=== PATIENT | male | born 1940 | race Caucasian/White ===

== ENCOUNTER 2020-09-27 16:12 | Inpatient (IN) | payer MEDICARE ==
[~2020-09-27 16:12] MED LIST: Iopamidol-370 76% 500 ML 1 ML ONE
[2020-09-27 19:13] LABS: Troponin I 0.041 ng/mL (< 0.028)
--- NOTE | 2020-09-27 19:48 | CT ---
EXAM: CT ANGIOGRAM CHEST WITH 3D RENDERIN09/27/20 HISTORY: Dyspnea. Left sided pneumonia. FINDINGS: There is extensive bilateral interstitial, alveolar, and ground glass opacity changes throughout both lungs evidence for extensive bilateral COVID pneumonia. There are fairly numerous up to borderline s ized lymph nodes but without overt adenopathy by size criteria. Three vessel coronary artery calcific disease. No significant pleural effusion or pericardial effusion. Small hiatal hernia. Motion artifa ct lowers the sensitivity of this study particularly in the more peripheral pulmonary arteries partic ularly in the lower lobes. There is no central pulmonary artery thrombosis. Small 1.5 cm incompletel y characterized low attenuation focus in the central left lobe of the liver possibly some focal fatty change. IMPRESSION: No convincing CT evidence for acute pulmonary embolism. Evidence for extensive bilateral COVID pneumonia. Small hiatal hernia. Other findings as above. POS: RRE
[2020-09-27] MEDS ORDERED: Acetaminophen 325 MG TAB PO PRN (20:11)
[2020-09-27] MEDS ORDERED: Acetaminophen 650 MG Suppository PR PRN (20:11)
[2020-09-27] MEDS ORDERED: Albuterol Sulfate 2.5 mg/3 ml Neb NEB PRN (20:34)
[2020-09-27] MEDS ORDERED: Pharmacy to Dose REMDESIVIR IVPB PRN (20:37)
[2020-09-27] MEDS ORDERED: Dexamethasone 10 MG in Sodium Chloride 0.9% 50 ML IVPB SCH (20:45)
--- NOTE | 2020-09-27 21:19 | PDOC.HHP ---
Hospitalist HPI History of Present Illness: ADMISSION DATE: 09/27/2020 TIME OF ASSESSMENT: 190 PRIMARY CARE PHYSICIAN: Dr. Mchugh CHIEF COMPLAINT: Weakness and falls HPI: This is an 80-year-old gentleman who presents to the emergency department today due to concerns over generalized weakness which she has been experiencing for the last 4 to 5 days. The patient states that he is had frequent falls at home without any loss of consciousness and states that his legs suddenly give out due to significant weakness. He has sustained injuries to his head with his falls but denies any lasting pain or discomfort associated with falling. Denies any extremity numbness and has not had any vision or speech disturbances. Denies any dizziness/spinning sensation. Denies experiencing any lightheadedness. He states he has had a low appetite with subsequent decreased p.o. intake. Has had an occasional cough but denies any fevers, chills or sweats. His cough has been nonproductive and he denies any hemoptysis, shor tness of breath or chest pain. No nausea vomiting or abdominal pain. No changes with his stools and denies having any urinary symptoms. All other review of systems are negative. Since arriving to the emergency department the patient states that his energy level has increased significantly and he feels better. ED COURSE: He was initially seen at [facility] and per ED notes he was noted to have a low-grade temperature of 99.5 with sats of 88% on room air which improved to 98% on 2 L of oxygen by nasal cannula. A chest x-ray was done demonstrating bilateral pulmonary infiltrates, denser on the left upper lobe than the right. Given the falls he had a CT of the head done that showed chronic ischemic changes with no acute intracranial findings. Labs notable for white cell count of 9.3, hemoglobin 13.6, hematocrit 41%, platelets 157, neutrophils 79.1%. BUN 24, creatinine 1.51, GFR 45, glucose 242, lactic acid 2.1. Total bilirubin 1.6, AST 98, ALT 71, alk phos 82, CK-MB 2.2, BNP 84.9, troponin 0 0.041. Repeat troponin was 0.041. EKG done in the ER showed a normal sinus rhythm with no ST changes or T wave abnormalities. He received IV antibiotics with Rocephin 1 g and azithromycin 500 mg IV. He was given Decadron 6 mg IV as well as aspirin 324 mg. He received 500 mL of normal saline. A rapid Covid test was done and came back positive. He was transferred to the ER here and has been requiring 4 L of O2 to maintain sats of 97%. Blood pressure has been stable and he has been afebrile. CT angiogram of the chest was done which showed no convincing evidence for pulmonary embolism. He was noted to have extensive bilateral Covid pneumonia as well as a small hiatal hernia. PAST MEDICAL HISTORY: 1. GERD 2. Hyperlipidemia 3. Hypertension 4. History of CVA PAST SURGICAL HISTORY: None SOCIAL HISTORY: He lives with his . He is fully independent at baseline. Does not require any mobility devices. FAMILY HISTORY: Noncontributory ALLERGIES: No known drug allergies CURRENT MEDICATIONS: 1. Simvastatin 20 mg p.o. daily 2. Amlodipine 10 mg p.o. daily 3. Lisinopril 10 mg p.o. daily 4. Omeprazole 20 mg p.o. daily Hospitalist Exam General Appearance: NAD, awake alert General - other findings: VS: Temp 98.3, HR 59, BP 112/58, RR 18, O2 sat 100% on 4 L O2 by NC Eye: PERRL, anicteric sclera ENT: normocephalic atraumatic, no oropharyngeal lesions, dry oral mucosa Neck: supple, no lymphadenopathy Heart: RRR, no murmur, no gallops, no rubs, normal peripheral pulses Respiratory: CTAB, no wheezes, no rales, normal chest expansion Gastrointestinal: soft, non-tender, non-distended, normal bowel sounds, no guarding, no rigidity Extremities: no edema Skin: no lesions, no rashes, tenting Neurological: cranial nerve grossly intact, normal sensation to touch, no weakness, no focal deficits, no new deficit Neurological - other findings: power 5/5 in all limbs, facial sensation and movements normal Musculoskeletal: normal tone, normal strength, no muscle wasting Psychiatric: normal affect, normal behavior, A&O x 3 Hospitalist Results Lab results: Laboratory Last Values Troponin I 0.041 ng/mL (< 0.028) H 09/27/20 18:33 CT scan - chest Status: report reviewed by me CT scan - head Status: report reviewed by me Hospitalist H&P A/P (1) Pneumonia due to COVID-19 virus Code(s): U07.1 - COVID-19; J12.82 - PNEUMONIA DUE TO CORONAVIRUS DISEASE 2019 Status: Acute (2) Generalized weakness Code(s): R53.1 - WEAKNESS Status: Acute (3) Multiple falls Code(s): R29.6 - REPEATED FALLS Status: Acute (4) ERNESTINE (acute kidney injury) Code(s): N17.9 - ACUTE KIDNEY FAILURE, UNSPECIFIED Status: Acute (5) Hypertension Code(s): I10 - ESSENTIAL (PRIMARY) HYPERTENSION Status: Chronic (6) History of CVA (cerebrovascular accident) Code(s): Z86.73 - PRSNL HX OF TIA (TIA), AND CEREB INFRC W/O RESID DEFICITS Status: Chronic (7) GERD (gastroesophageal reflux disease) Code(s): K21.9 - GASTRO-ESOPHAGEAL REFLUX DISEASE WITHOUT ESOPHAGITIS Status: Chronic (8) Hyperlipidemia Code(s): E78.5 - HYPERLIPIDEMIA, UNSPECIFIED Status: Chronic Plan: Hypoxia secondary to COVID pneumonia Continue to monitor O2 sats Albuterol inhalers and steroids Vitamin C and Zinc ordered Screen for Remdesivir Generalized weakness with falls- multifactorial (COVID pneumonia and dehydration) PT/OT consulted Check orthostatic BPs ERNESTINE Gentle hydration Monitor renal function Avoid nephrotoxic meds History of CVA Chronic and stable No indication he is having an acute CVA/TIA No neuro deficits on exam Hypertension Monitor BP Hold antihypertensives, given soft BP Hyperlipidemia Resume home meds once verified GERD Resume protonix DVT Prophylaxis Heparin CODE STATUS FULL Case discussed with attending who agrees with plan as above.
[2020-09-27 21:44] LABS: CRP (Inflammatory) 17.6 mg/dL (= or < 0.5); Magnesium 2.2 mg/dL (1.6-2.6)
[2020-09-27 21:50] LABS: Troponin I 0.025 ng/mL (< 0.028)
[2020-09-27 21:59] VITALS: BMI 25.3
[2020-09-27] MEDS ORDERED: Dexamethasone 4 mg/ml Vial SLOW IVP SCH (22:30)
[2020-09-27] MEDS: Sodium Chloride 0.9% 1,000 ML IV SCH (22:41)
[2020-09-27] MEDS: Famotidine/PF 20 mg/2ml Vial SLOW IVP SCH (22:42)
[2020-09-28 04:46] LABS: #Lymphocytes 0.8 thou/uL (1.20-3.40); #Monocytes 0.3 thou/uL (0.11-0.59); #Neutrophils 8.8 thou/uL (1.40-6.50); %Basophils 0.2 % (0.0-1.0); %Eosinophils 0.1 % (0.0-10.0); %Lymphocytes 8.1 % (21.0-51.0); %Monocytes 3.3 % (0.0-10.0); %Neutrophils 88.3 % (42.0-75.0); Hemoglobin 12.7 g/dL (14.0-18.0); Mean Corpuscular HGB CONC 33.2 g/dL (32.0-36.0); Mean Corpuscular Hemoglobin 30.8 pg (27.0-31.0); Mean Corpuscular Volume 92.7 fL (78.0-98.0); Mean Platelet Volume 9.6 fL (7.4-10.4); Platelet Count 182 thou/uL (130-400); RBC Distribution Width 11.9 % (11.5-14.5); Red Blood Cell (RBC) Count 4.11 mill/uL (4.70-6.10); White Blood Cell (WBC) Count 9.9 thou/uL (4.8-10.8)
[2020-09-28 05:20] LABS: ALT (SGPT) 61 U/L (8-55); AST (SGOT) 79 U/L (5-34); Albumin 2.8 g/dL (3.4-4.8); Alkaline Phosphatase 81 U/L (40-110); Anion Gap 14 mmol/L (10-20); BUN (Urea Nitrogen) 22 mg/dL (8.4-25.7); Calc. Creatinine Clearance 57 mL/min (70-130); Calcium 8.3 mg/dL (7.8-10.44); Carbon Dioxide 23 mmol/L (23-31); Chloride 107 mmol/L (98-107); Globulin 3.8 g/dL (2.4-3.5); Glucose 210 mg/dL (83-110); Protein, Total 6.6 g/dL (5.8-8.1); Sodium 139 mmol/L (136-145)
[2020-09-28] MEDS ORDERED: REMDESIVIR (EUA) 200 MG in Sodium Chloride 0.9% 250 ML 210 ML IV SCH (08:15)
[2020-09-28] MEDS: Famotidine/PF 20 mg/2ml Vial SLOW IVP SCH ×2 (09:33→22:10)
[2020-09-28] MEDS: Zinc Sulfate 220 MG CAP PO SCH (09:33)
[2020-09-28] MEDS: Dexamethasone 4 mg/ml Vial SLOW IVP SCH (09:33)
[2020-09-28] MEDS: Ascorbic Acid 500 mg Chewable Tablet PO SCH (09:33)
[2020-09-28] MEDS: Heparin 5,000 UNITS/ML VIAL SC SCH ×3 (09:34→22:11)
--- NOTE | 2020-09-28 10:28 | PDOC.HOSPP ---
- Subjective Encounter Date: 09/28/20 Encounter Time: 10:27 Subjective: Patient lying in bed, awake. Patient pleasant to talk to, alert and oriented. Denies any events occurred last night. - Objective Vital Signs & Weight: Vital Signs (12 hours) Temp Pulse Resp BP Pulse Ox 09/28/20 04:30 97.6 F 62 18 127/60 94 L Weight Weight 166 lb 12.8 oz I&O: 09/27/20 09/28/20 09/29/20 06:59 06:59 06:59 Intake Total 510 Output Total 1 Balance 509 Result Diagrams: 09/28/20 04:12 09/28/20 04:12 Hospitalist ROS - Review of Systems Constitutional: denies: fever, chills, sweats, weakness, malaise Eyes: denies: pain, vision change, conjunctivae inflammation, eyelid inflammation, redness ENT: denies: ear pain, ear discharge, nose pain, nose discharge, nose congestion, mouth pain, mouth swelling, throat pain, throat swelling Respiratory: denies: cough, dry, shortness of breath, hemoptysis, SOB with excertion, pleuritic pain, sputum, wheezing Cardiovascular: denies: chest pain, palpitations, orthopnea, paroxysmal noc. dyspnea, edema, light headedness Gastrointestinal: denies: nausea, vomiting, abdominal pain, diarrhea, constipation, melena, hematochezia Genitourinary: denies: dysuria, frequency, incontinence, hematuria, retention Musculoskeletal: denies: neck pain, shoulder pain, arm pain, back pain, hand pain, leg pain, foot pain Skin: denies: rash, lesions, alejandro, bruising, other Neurological: denies: weakness, numbness, incoordination, change in speech, confusion, seizures All other systems reviewed; all pertinent +/- noted in HPI/Subj - Medication Medications: Active Medications Generic Name Dose Route Start Last Admin Trade Name Freq PRN Reason Stop Dose Admin Ascorbic Acid 1,000 mg 09/28/20 09:00 09/28/20 09:33 Ascorbic Acid 500 Mg Chewable Tablet PO 1,000 mg DAILY NITISH Administration Dexamethasone 6 mg 09/28/20 09:00 09/28/20 09:33 Dexamethasone 4 Mg/Ml Vial SLOW IVP 6 mg DAILY NITISH Administration Famotidine 20 mg 09/27/20 21:00 09/28/20 09:33 Famotidine/Pf 20 Mg/2ml Vial SLOW IVP 20 mg Q12HR NITISH Administration Heparin Sodium (Porcine) 5,000 units 09/28/20 09:00 09/28/20 09:34 Heparin 5,000 Units/Ml Vial SC 5,000 units TID NITISH Administration Sodium Chloride 1,000 mls @ 45 mls/hr 09/27/20 22:30 09/27/20 22:41 Normal Saline 0.9% IV 1,000 mls .[id number] NITISH Administration Sodium Chloride 10 ml 09/27/20 20:11 09/28/20 09:34 Flush - Normal Saline 10 Ml Syringe IVF 10 ml Q12HR PRN Administration Saline Flush Zinc Sulfate 220 mg 09/28/20 09:00 09/28/20 09:33 Zinc Sulfate 220 Mg Cap PO 220 mg DAILY NITISH Administration Hospitalist Exam Vitals: Vital Signs (12 hours) Temp Pulse Resp BP Pulse Ox 09/28/20 04:30 97.6 F 62 18 127/60 94 L Weight Weight 166 lb 12.8 oz General Appearance: NAD, awake alert Eye: PERRL, anicteric sclera ENT: normocephalic atraumatic, no oropharyngeal lesions, moist mucosa Neck: supple, symmetric, no JVD, no thyromegaly, no lymphadenopathy, no carotid bruit Heart: RRR, no murmur, no gallops, no rubs, normal peripheral pulses Respiratory: CTAB, no wheezes, no rales, no ronchi, normal chest expansion, no tachypnea, normal percussion Gastrointestinal: soft, non-tender, non-distended, normal bowel sounds, no palpable masses, no hepatomegaly, no splenomegaly, no bruit Extremities: no cyanosis, no clubbing, no edema Skin: normal turgor, no lesions, no rashes Neurological: cranial nerve grossly intact, normal sensation to touch, no weakness, no focal deficits, no new deficit Musculoskeletal: normal tone, normal strength, no muscle wasting Psychiatric: normal affect, normal behavior, A&O x 3 Hosp A/P (1) Pneumonia due to COVID-19 virus Code(s): U07.1 - COVID-19; J12.82 - PNEUMONIA DUE TO CORONAVIRUS DISEASE 2019 Status: Acute (2) Generalized weakness Code(s): R53.1 - WEAKNESS Status: Acute (3) ERNESTINE (acute kidney injury) Code(s): N17.9 - ACUTE KIDNEY FAILURE, UNSPECIFIED Status: Acute (4) GERD (gastroesophageal reflux disease) Code(s): K21.9 - GASTRO-ESOPHAGEAL REFLUX DISEASE WITHOUT ESOPHAGITIS Status: Chronic (5) Hyperlipidemia Code(s): E78.5 - HYPERLIPIDEMIA, UNSPECIFIED Status: Chronic (6) Hypertension Code(s): I10 - ESSENTIAL (PRIMARY) HYPERTENSION Status: Chronic - Plan DVT proph w/heparin 80 y/o male admitted for hypoxia s/p COVID pneumonia: PLAN: Hypoxia secondary to COVID pneumonia Continue to monitor O2 sats Albuterol inhalers and steroids Vitamin C and Zinc ordered Remdesivir started 09/28/20 Generalized weakness with falls- multifactorial (COVID pneumonia and dehydration) PT/OT consulted Check orthostatic BPs ERNESTINE Gentle hydration Monitor renal function Avoid nephrotoxic meds History of CVA Chronic and stable No indication he is having an acute CVA/TIA No neuro deficits on exam Hypertension Monitor BP Hold antihypertensives, given soft BP Hyperlipidemia Resume home meds once verified GERD Resume protonix DVT Prophylaxis Heparin CODE STATUS FULL
[2020-09-28] MEDS: VANCOMYCIN 1.25 GM/250 ML BAG 1.25 GM in Premix Bag 1 BAG IVPB SCH (18:35)
[2020-09-29] MEDS: Sodium Chloride 0.9% 1,000 ML IV SCH ×2 (04:04→18:52)
[2020-09-29] MEDS: Famotidine/PF 20 mg/2ml Vial SLOW IVP SCH ×2 (09:12→20:05)
[2020-09-29] MEDS: Zinc Sulfate 220 MG CAP PO SCH (09:12)
[2020-09-29] MEDS: Ascorbic Acid 500 mg Chewable Tablet PO SCH (09:12)
[2020-09-29] MEDS: Heparin 5,000 UNITS/ML VIAL SC SCH ×3 (09:13→20:05)
[2020-09-29] MEDS: Dexamethasone 4 mg/ml Vial SLOW IVP SCH (09:15)
--- NOTE | 2020-09-29 10:02 | PDOC.HOSPP ---
- Subjective Encounter Date: 09/29/20 Encounter Time: 08:25 Subjective: 80 y/o male sitting up in bed and he is alert and oriented when questioned. Patient is on room air, denies any shortness of breath. Patient has sporadic dry cough. - Objective Vital Signs & Weight: Vital Signs (12 hours) Temp Pulse Resp BP BP Pulse Ox 09/29/20 07:48 97.4 F L 55 L 16 107/57 L 95 09/29/20 04:12 97.5 F L 59 L 22 H 131/59 L 93 L 09/28/20 22:20 97.6 F 58 L 20 119/60 97 Weight Weight 166 lb 12.8 oz I&O: 09/28/20 09/29/20 09/30/20 06:59 06:59 06:59 Intake Total 510 230 Output Total 1 Balance 509 230 Result Diagrams: 09/28/20 04:12 09/28/20 04:12 Hospitalist ROS - Review of Systems Constitutional: denies: fever, chills, sweats, weakness, malaise Eyes: denies: pain, vision change, conjunctivae inflammation, eyelid inflammation, redness ENT: denies: ear pain, ear discharge, nose pain, nose discharge, nose congestion, mouth pain, mouth swelling, throat pain, throat swelling Respiratory: reports: cough. denies: dry, shortness of breath, hemoptysis, SOB with excertion, pleuritic pain, sputum, wheezing Cardiovascular: denies: chest pain, palpitations, orthopnea, paroxysmal noc. dyspnea, edema, light headedness Gastrointestinal: denies: nausea, vomiting, abdominal pain, diarrhea, constipation, melena, hematochezia Genitourinary: denies: dysuria, frequency, incontinence, hematuria, retention Musculoskeletal: denies: neck pain, shoulder pain, arm pain, back pain, hand pain, leg pain, foot pain, other Skin: denies: rash, lesions, alejandro, bruising Neurological: denies: weakness, numbness, incoordination, change in speech, confusion, seizures All other systems reviewed; all pertinent +/- noted in HPI/Subj - Medication Medications: Active Medications Generic Name Dose Route Start Last Admin Trade Name Freq PRN Reason Stop Dose Admin Ascorbic Acid 1,000 mg 09/28/20 09:00 09/29/20 09:12 Ascorbic Acid 500 Mg Chewable Tablet PO 1,000 mg DAILY NITISH Administration Dexamethasone 6 mg 09/28/20 09:00 09/29/20 09:15 Dexamethasone 4 Mg/Ml Vial SLOW IVP 6 mg DAILY NITISH Administration Famotidine 20 mg 09/27/20 21:00 09/29/20 09:12 Famotidine/Pf 20 Mg/2ml Vial SLOW IVP 20 mg Q12HR NITISH Administration Heparin Sodium (Porcine) 5,000 units 09/28/20 09:00 09/29/20 09:13 Heparin 5,000 Units/Ml Vial SC 5,000 units TID NITISH Administration Sodium Chloride 1,000 mls @ 45 mls/hr 09/27/20 22:30 09/29/20 04:04 Normal Saline 0.9% IV 1,000 mls .[id number] NITISH Administration Vancomycin HCl 1.25 gm/ Device 250 mls @ 166.667 mls/hr 09/28/20 18:00 09/28/20 18:35 IVPB 250 mls 1800 NITISH Administration Sodium Chloride 10 ml 09/27/20 20:11 09/29/20 09:11 Flush - Normal Saline 10 Ml Syringe IVF 10 ml Q12HR PRN Administration Saline Flush Zinc Sulfate 220 mg 09/28/20 09:00 09/29/20 09:12 Zinc Sulfate 220 Mg Cap PO 220 mg DAILY NITISH Administration Hospitalist Exam Vitals: Vital Signs (12 hours) Temp Pulse Resp BP BP Pulse Ox 09/29/20 07:48 97.4 F L 55 L 16 107/57 L 95 09/29/20 04:12 97.5 F L 59 L 22 H 131/59 L 93 L 09/28/20 22:20 97.6 F 58 L 20 119/60 97 Weight Weight 166 lb 12.8 oz General Appearance: NAD, awake alert Eye: PERRL, anicteric sclera ENT: normocephalic atraumatic, no oropharyngeal lesions, moist mucosa Neck: supple, symmetric, no JVD, no thyromegaly, no lymphadenopathy, no carotid bruit Heart: RRR, no murmur, no gallops, no rubs, normal peripheral pulses Respiratory: CTAB, no wheezes, no rales, no ronchi, normal chest expansion, no tachypnea, normal percussion Gastrointestinal: soft, non-tender, non-distended, normal bowel sounds, no palpable masses, no hepatomegaly, no splenomegaly, no bruit Extremities: no cyanosis, no clubbing, no edema Skin: normal turgor, no lesions, no rashes Neurological: cranial nerve grossly intact, normal sensation to touch, no weakness, no focal deficits, no new deficit Musculoskeletal: normal tone, normal strength, no muscle wasting Psychiatric: normal affect, normal behavior, A&O x 3 Hosp A/P (1) Pneumonia due to COVID-19 virus Code(s): U07.1 - COVID-19; J12.82 - PNEUMONIA DUE TO CORONAVIRUS DISEASE 2018 Status: Acute (2) Generalized weakness Code(s): R53.1 - WEAKNESS Status: Acute (3) ERNESTINE (acute kidney injury) Code(s): N17.9 - ACUTE KIDNEY FAILURE, UNSPECIFIED Status: Acute (4) GERD (gastroesophageal reflux disease) Code(s): K21.9 - GASTRO-ESOPHAGEAL REFLUX DISEASE WITHOUT ESOPHAGITIS Status: Chronic (5) Hyperlipidemia Code(s): E78.5 - HYPERLIPIDEMIA, UNSPECIFIED Status: Chronic (6) Hypertension Code(s): I10 - ESSENTIAL (PRIMARY) HYPERTENSION Status: Chronic - Plan 80 y/o male admitted for hypoxia s/p COVID pneumonia: PLAN: Hypoxia secondary to COVID pneumonia Continue to monitor O2 sats Albuterol inhalers and steroids Vitamin C and Zinc ordered Remdesivir started 09/28/20 Generalized weakness with falls- multifactorial (COVID pneumonia and dehydration) PT/OT consulted Check orthostatic BPs - patient orthostatic negative ERNESTINE Gentle hydration, patient is tolerating intake well. Monitor renal function Avoid nephrotoxic meds History of CVA Chronic and stable No indication he is having an acute CVA/TIA No neuro deficits on exam Hypertension Monitor BP Hold antihypertensives, given soft BP Hyperlipidemia Resume home meds once verified GERD Resume protonix DVT Prophylaxis Heparin CODE STATUS FULL
[2020-09-29] MEDS: REMDESIVIR (EUA) 100 MG in Sodium Chloride 0.9% 250 ML 230 ML IV SCH (10:07)
[2020-09-29] MEDS: VANCOMYCIN 1.25 GM/250 ML BAG 1.25 GM in Premix Bag 1 BAG IVPB SCH (18:43)
[2020-09-29] MEDS: Atorvastatin Calcium 10 MG TAB PO SCH (20:05)
--- NOTE | 2020-09-30 08:11 | PDOC.BPN ---
- Brief Progress Note Encounter Date: 09/29/20 Encounter Time: 18:30 Discussed patient's discharge with Dr. Cassidy. Patient was ambulated by nursing this evening and nurse reported that he was not terrible unsteady, he ambulates with a walker at home. is unable to get him tonight for DC, so planning on discharging tomorrow, 09/30/20.
[2020-09-30] MEDS: Amlodipine 10 MG TAB PO SCH (08:51)
[2020-09-30] MEDS: Ascorbic Acid 500 mg Chewable Tablet PO SCH (08:51)
[2020-09-30] MEDS: Famotidine/PF 20 mg/2ml Vial SLOW IVP SCH ×2 (08:51→20:57)
[2020-09-30] MEDS: Dexamethasone 4 mg/ml Vial SLOW IVP SCH (08:51)
[2020-09-30] MEDS: Zinc Sulfate 220 MG CAP PO SCH (08:51)
[2020-09-30] MEDS: Heparin 5,000 UNITS/ML VIAL SC SCH ×3 (08:51→20:58)
[2020-09-30] MEDS: REMDESIVIR (EUA) 100 MG in Sodium Chloride 0.9% 250 ML 230 ML IV SCH (09:30)
--- NOTE | 2020-09-30 10:22 | PQF ---
CLINICAL DOCUMENTATION CLARIFICATION FORM: Dear Ayanna Smith PA-C Date: 09/30/20 Please exercise your independent, professional judgment in responding to the clarification form. Clinical indicators are provided on the bottom of this form for your review. Please check appropriate box(es): [ x ] Acute Respiratory Failure: [ x] with Hypoxia [ ] with Hypercapnia [ x] Acute Respiratory Failure due to: (etiology) __COVID-19 Pneumonia [ ] Hypoxia [ ] Other diagnosis [ ] Unable to determine In addition, please specify: Present on Admission (POA): [x ] Yes [ ] No [ ] Unable to determine For continuity of documentation, please document condition throughout progress notes and discharge summary. Thank You. To be completed by CDI/Coding staff for physician review: CLINICAL INDICATORS - SIGNS / SYMPTOMS / LABS / RESULTS AND LOCATION IN ER MD documentation 09/27: P.E. - VS notable for 02 sat in mid 90s on 4L of 02; patient reportedly had desats by EMS to the 80s on RA H&P 09/27 ([facility]): ED COURSE: per ED notes sats of 88% on RA which improved to 98% on 2L 02 NC; He was transferred to the ER here & has been requiring 4L of 02 to maintain sats of 97%. PLAN: Hypoxia 2/2 to COVID pneumonia RISK FACTORS / RESULTS AND LOCATION IN MR COVID Pneumonia, bilateral (H&P, 09/27) Hypoxia (H&P, 09/27) TREATMENTS / RESULTS AND LOCATION IN MR 02 4L (H&P, 09/27) Albuterol inhalers (H&P, 09/27) Steroids (H&P, 09/27) Acute Respiratory Failure: ABG pH < 7.35 or > 7.45; Decreased oxygen saturation (<90% room air or < 95% on oxygen); PCO2 > 50 mm Hg; PO2 < 60 mm Hg; Labored or rapid respirations ARDS: Dx Criteria [[place] ARDS]: Respiratory symptoms within one week of a known clinical insult (e.g. shock, infection, surgery, trauma) Bilateral opacities in CXR/Chest CT not due to CHF or fluid Thank you! CDS Signature: Kindra Lewis RN, BSN Phone #: [phone] Date: 09/30/20 This is a permanent part of the Medical Record [facility]
[2020-09-30] MEDS ORDERED: Cepastat Lozenges 1 LOZ PO PRN (11:05)
--- NOTE | 2020-09-30 11:22 | PDOC.DS.DS ---
Provider Date of Admission: 09/27/20 18:26 Date of Discharge: 10/02/20 Admitting Provider: Bladimir Eid MD Primary Care Physician: Uriel Mchugh MD Course Hospital Course: BRIEF HOSPITAL COURSE Mr. Escobedo is an 80-year-old male with a past medical history of hypertension, hyperlipidemia, GERD, CVA with no residual deficits who reported to the emergency room on 09/27/2020 for generalized weakness. Patient was found to have COVID-19 pneumonia and required 2 L of oxygen via nasal cannula to maintain O2 saturation. Patient did endorse a history of falls and so a head CT was done which showed no acute problems but did show chronic ischemic changes. Patient's labs were notable for a white count of 9.3, H/H 13.6/41, lactic acid 2.1, mildly elevated LFTs with AST/ALT 98/71, alk phos 82. BNP was 84.9 and troponin was 0.041, 0.041, 0.025. Patient did not have any chest pain, but did endorse mild shortness of breath. Patient was treated with ceftriaxone, azithromycin as well as Decadron in the emergency room. CTA showed bilateral patchy opacities as well as a left upper lobe infiltrate. A CT angiogram of the chest was done which showed no evidence for pulmonary embolism but did show a small hiatal hernia and changes consistent with COVID-19 pneumonia. Patient was treated with remdesivir, steroids and antibiotics. Patient's respiratory status and functional status greatly improved during admission. By her oxygen for the past 2 days, and has been ambulating well. Patient passed in walking trial and his O2 saturation did not drop. Patient walked well with nursing staff, and reports he uses a walker at home. Patient feels that he is at his baseline functional status. On day of discharge a repeat walking trial was done and O2 saturation dropped to 88%, so home oxygen was ordered. Given patient's COVID-19 and chest x-ray findings, will will continue course of steroids to complete 10 days as well as sent home with prescription for Cefpodoxime and azithromycin to complete a 5-day course. Patient was instructed to follow-up with his primary care provider this week as well as return to the emergency room should he develop any new worsening shortness of breath if his symptoms do not improve or if he develops any new or concerning symptoms. Patient was seen and evaluated by attending physician, Dr. Cassidy day of discharge. She is in agreement with assessment and plan for discharge home. Pertinent Studies: EXAM: CT ANGIOGRAM CHEST WITH 3D RENDERIN09/27/20 HISTORY: Dyspnea. Left sided pneumonia. FINDINGS: There is extensive bilateral interstitial, alveolar, and ground glass opacity changes throughout both lungs evidence for extensive bilateral COVID pneumonia. There are fairly numerous up to borderline sized lymph nodes but without overt adenopathy by size criteria. Three vessel coronary artery calcific disease. No significant pleural effusion or pericardial effusion. Small hiatal hernia. Motion artifact lowers the sensitivity of this study particularly in the more peripheral pulmonary arteries particularly in the lower lobes. There is no central pulmonary artery thrombosis. Small 1.5 cm incompletely characterized low attenuation focus in the central left lobe of the liver possibly some focal fatty change. IMPRESSION: No convincing CT evidence for acute pulmonary embolism. Evidence for extensive bilateral COVID pneumonia. Small hiatal hernia. Other findings as above. Dictated By: GUANAKO DAVIS Signed By: GUANAKO DAVIS Electronically signed: 09/27/2020 7:51:18 PM PORTABLE CHEST: 09/27/20 An AP portable film at 1410 was submitted. There is a dense consolidation in the left lung, predominantly left upper lobe. One could argue that parts of it are somewhat wedge shaped which can sometimes be a sign of pulmonary embolism, but it could also be a pneumonia and nothing more. There also appears to be a little bit of peripheral infiltration in the right upper lobe. There are no effusions. There is no vascular congestion or edema. The cardiac size is normal for age. The aorta shows calcification. An incidental finding was a calcified granuloma in the right upper lobe. IMPRESSION: Bilateral pulmonary infiltrates, denser in the left upper lobe than the right. See comments above. Findings discussed with Dr. Rangel at 1417 on 09/27/20. Dictated By: James Rahman Signed By: James Rahman Electronically signed: 09/27/2020 11:08:18 PM Resuscitation Status: 09/27/20 20:11 Resuscitation Status Routine Co-Sign Provider: Resuscitation Status: FULL: Full Resuscitation Lab Results: 09/28/20 04:12 09/28/20 04:12 Microbiology - Entire Visit 09/29/20 19:13 Venous blood - Left Arm Blood Culture - Preliminary Specimen has been received and culture in progress. No Growth to date. 09/29/20 19:13 Venous blood - Right Arm Blood Culture - Preliminary Specimen has been received and culture in progress. No Growth to date. Vitals: Vital Signs (12 hours) Temp Pulse Resp BP Pulse Ox 09/30/20 08:50 97.7 F 56 L 18 116/55 L 95 09/30/20 04:53 97.5 F L 58 L 17 136/60 95 Weight Weight 166 lb 12.8 oz Physical Exam: The patient was seen and examined on the day of discharge. NAD, AOx3 Normocephalic, atraumatic Neck supple, no JVD, no lymphadenopathy RRR, no murmurs, rubs, or gallops Lungs CTAB, no wheezes, no dyspnea or tachypnea Abdomen soft, non-tender with normoactive bowel sounds Skin warm with no rashes, normal turgor Extremities with no edema and intact peripheral pulses Normal tone and muscle strength No focal deficits, no weakness Problem Plan of Treatment: Hypoxia secondary to COVID pneumonia Initially on 2L, now stable on RA. Initially passed amublation trial, but repeat with mild drop. Meets criteria for home O2, given return instructions Will continue on outpatient dexamethasone for a total of 10 days. Will continue with cefpodoxime and azithromycin for 5 days given CXR findings. Return precautions given. Generalized weakness with falls- multifactorial (COVID pneumonia and dehydration) PT/OT consulted who recommended rehab, however patient uses a walker at home at baseline which he did not use on assessment. Patient trialed with walker with nursing staff and felt to be at his baseline ambulatory status. Weakness has greatly improved. Encouraged patient to continue with walker at all times at home to avoid falls and to follow up with PCP within the next week. ERNESTINE Gentle hydration, patient is tolerating intake well. Resolved History of CVA Chronic and stable No indication he is having an acute CVA/TIA No neuro deficits on exam. Hypertension Continue home meds Hyperlipidemia Continue home meds GERD Resume protonix Case discussed with attending physician Dr. Cassidy who also examined and assessed patient on day of discharge. She is in agreement with assessment and plan as above. Plan Prescriptions: Cefpodoxime Proxetil [Vantin] 200 mg PO Q12HR 5 Days #10 tablet Azithromycin 250 mg PO QAM 5 Days #5 tablet Dexamethasone 6 mg PO DAILY 6 Days #6 tablet Home Medications: Medication Instructions Recorded Confirmed Type Amlodipine [Norvasc] 10 mg PO DAILY 09/28/20 09/28/20 History Simvastatin 20 mg PO DAILY 09/28/20 09/28/20 History Azithromycin 250 mg PO QAM 5 Days #5 tablet 09/30/20 Rx Cefpodoxime Proxetil [Vantin] 200 mg PO Q12HR 5 Days #10 tablet 09/30/20 Rx Cepastat Lozenges 1 jey PO Q2H PRN jey 09/30/20 Rx Dexamethasone 6 mg PO DAILY 6 Days #6 tablet 09/30/20 Rx Allergies: No Known Allergies Allergy (Verified 09/27/20 22:30) per pt Discharge Instructions:: You were admitted to the hospital for shortness of breath. You were found to have COVID-19 pneumonia (pneumonia caused by coronavirus). Since you initially required oxygen, you were given a medication called Remdesivir which is an anti- viral medication used to treat COVID-19. You were also given a steroid medication called Dexamethasone. Your breathing improved and since you no longer needed oxygen at rest, you were discharged home. Since your oxygen saturation decreased when you were walking around, we have sent you home with oxygen. Please wear this when walking around or any time you are not sitting. Please keep track of your oxygen saturation. If you feel short of breath or feel that your breathing is worse, or that you need more oxygen return to the emergency room immediately. You will also need to continue to take a steroid medication called Dexamethasone. Since your chest x-ray was concerning for bacterial pneumonia, you were also given antibiotics during your stay. You will need to continue these antibiotics at home for five days. One antibiotic is called cefpodoxime which you will take twice daily and the other is azithromycin which you will take once daily. These three medications have been sent to your pharmacy. Please take one pill every morning for the next 6 days. It is very important that if you develop worsening shortness of breath to immediately return to the emergency room to be evaluated. Please also return if you develop any new or concerning symptoms. Please follow up with an appointment with your primary care provider within the next week. Your prescriptions have been sent to the [facility] in [place]. Referrals: Uriel Mchugh MD [Primary Care Provider] - 7 Days Disposition: HOME Quality CORE MEASURES:: N/A
[2020-09-30] MEDS: Sodium Chloride 0.9% 1,000 ML IV SCH (17:24)
[2020-09-30] MEDS ORDERED: VANCOMYCIN HCL IVPB SCH (18:00)
[2020-09-30] MEDS ORDERED: SODIUM CHLORIDE 0.9% IVPB SCH (18:00)
--- NOTE | 2020-09-30 19:56 | PDOC.EVN ---
Event Note - Event Note Event Note: Saw patient on day of discharge. He was doing well and requested tessalon pearls while in the hospital. States he has plenty of tessalon pearls at home. Lungs: were clear CVS: RRR General: patient looks well appearing Ext: no edema Plan to d/c home if home oxygen eval on exertion normal and can stop remdesivir in that setting. If still hypoxic on exertion, can send home with oxygen
[2020-09-30] MEDS: Atorvastatin Calcium 10 MG TAB PO SCH (20:57)
[2020-10-01] MEDS: Sodium Chloride 0.9% 1,000 ML IV SCH ×2 (01:15→16:52)
[2020-10-01] MEDS ORDERED: cefTRIAXone\\ROCEPHIN 1 GM in Sodium Chloride 0.9% 100 ML IVPB SCH (09:00)
[2020-10-01] MEDS ORDERED: Azithromycin 500 MG in Sodium Chloride 0.9% 250 ML 250 ML IVPB SCH (09:00)
[2020-10-01] MEDS: Ascorbic Acid 500 mg Chewable Tablet PO SCH (09:42)
[2020-10-01] MEDS: Famotidine/PF 20 mg/2ml Vial SLOW IVP SCH (09:43)
[2020-10-01] MEDS: Zinc Sulfate 220 MG CAP PO SCH (09:43)
[2020-10-01] MEDS: Dexamethasone 4 mg/ml Vial SLOW IVP SCH (09:43)
[2020-10-01] MEDS: Amlodipine 10 MG TAB PO SCH (09:46)
[2020-10-01] MEDS: Heparin 5,000 UNITS/ML VIAL SC SCH ×2 (09:47→16:18)
[2020-10-01] MEDS: REMDESIVIR (EUA) 100 MG in Sodium Chloride 0.9% 250 ML 230 ML IV SCH (09:48)
--- NOTE | 2020-10-01 14:38 | PDOC.HOSPP ---
- Subjective Encounter Date: 10/01/20 Encounter Time: 14:37 Subjective: Patient was supposed to be discharged from the hospital on 09/30/2020, however still awaiting home O2. Patient comfortable on RA at rest, needing O2 on ambulation. Denies chest pain, palpitations, or abdominal pain. Nursing reports patient is sometimes confused. A&Ox4 on my review. Discussed with who says this is his baseline. No new concerns or complaints. Chart and medications reviewed. - Objective Vital Signs & Weight: Vital Signs (12 hours) Temp Pulse Resp BP BP Pulse Ox 10/01/20 11:30 98.1 F 54 L 20 155/70 H 100 10/01/20 09:46 50 L 10/01/20 08:00 97.7 F 60 20 114/87 95 10/01/20 03:50 97.7 F 55 L 24 H 126/85 98 Weight Weight 166 lb 12.8 oz I&O: 09/30/20 10/01/20 10/02/20 06:59 06:59 06:59 Intake Total 2690 2006.5 Output Total 975 1050 Balance 1715 956.5 Result Diagrams: 09/28/20 04:12 09/28/20 04:12 Hospitalist ROS - Review of Systems Constitutional: reports: weakness, malaise. denies: fever, chills, sweats, ot her Eyes: denies: pain, vision change, conjunctivae inflammation, eyelid in flammation, redness, other ENT: denies: ear pain, ear discharge, nose pain, nose discharge, nose congestion, mouth pain, mouth swelling, throat pain, throat swelling, other Respiratory: reports: SOB with excertion. denies: cough, dry, shortness of b reath, hemoptysis, pleuritic pain, sputum, wheezing, other Cardiovascular: denies: chest pain, palpitations, orthopnea, paroxysmal noc. dyspnea, edema, light headedness, other Gastrointestinal: denies: nausea, vomiting, abdominal pain, diarrhea, cons tipation, melena, hematochezia, other Genitourinary: denies: dysuria, frequency, incontinence, hematuria, retention, other Musculoskeletal: denies: neck pain, shoulder pain, arm pain, back pain, hand pain, leg pain, foot pain, other Neurological: denies: weakness, numbness, incoordination, change in speech, confusion, seizures, other - Medication Medications: Active Medications Generic Name Dose Route Start Last Admin Trade Name Freq PRN Reason Stop Dose Admin Amlodipine Besylate 10 mg 09/30/20 09:00 10/01/20 09:46 Amlodipine 10 Mg Tab PO Not Given DAILY NITISH Ascorbic Acid 1,000 mg 09/28/20 09:00 10/01/20 09:42 Ascorbic Acid 500 Mg Chewable Tablet PO 1,000 mg DAILY NITISH Administration Atorvastatin Calcium 10 mg 09/29/20 21:00 09/30/20 20:57 Atorvastatin Calcium 10 Mg Tab PO 10 mg HS NITISH Administration Dexamethasone 6 mg 09/28/20 09:00 10/01/20 09:43 Dexamethasone 4 Mg/Ml Vial SLOW IVP 6 mg DAILY NITISH Administration Famotidine 20 mg 09/27/20 21:00 10/01/20 09:43 Famotidine/Pf 20 Mg/2ml Vial SLOW IVP 20 mg Q12HR NITISH Administration Heparin Sodium (Porcine) 5,000 units 09/28/20 09:00 10/01/20 09:47 Heparin 5,000 Units/Ml Vial SC 5,000 units TID NITISH Administration Sodium Chloride 1,000 mls @ 45 mls/hr 09/27/20 22:30 10/01/20 01:15 Normal Saline 0.9% IV 1,000 mls .[id number] NITISH Administration Remdesivir 100 mg/ Sodium 250 mls @ 250 mls/hr 09/29/20 09:00 10/01/20 09:48 Chloride IV 10/02/20 09:59 250 mls 0900 NITISH Administration Ceftriaxone Sodium 1 gm/ 100 mls @ 200 mls/hr 10/01/20 09:00 10/01/20 12:33 Sodium Chloride IVPB 100 mls 0900 NITISH Administration Azithromycin 500 mg/ Sodium 250 mls @ 250 mls/hr 10/01/20 09:00 10/01/20 13:18 Chloride IVPB 250 mls 0900 NITISH Administration Sodium Chloride 10 ml 09/27/20 20:11 09/29/20 09:11 Flush - Normal Saline 10 Ml Syringe IVF 10 ml Q12HR PRN Administration Saline Flush Zinc Sulfate 220 mg 09/28/20 09:00 10/01/20 09:43 Zinc Sulfate 220 Mg Cap PO 220 mg DAILY NITISH Administration Hospitalist Exam Vitals: Vital Signs (12 hours) Temp Pulse Resp BP BP Pulse Ox 10/01/20 11:30 98.1 F 54 L 20 155/70 H 100 10/01/20 09:46 50 L 10/01/20 08:00 97.7 F 60 20 114/87 95 10/01/20 03:50 97.7 F 55 L 24 H 126/85 98 Weight Weight 166 lb 12.8 oz General Appearance: NAD, awake alert General - other findings: No respiratory distress. Sitting in bed comfortably. Eye: PERRL, anicteric sclera ENT: normocephalic atraumatic, no oropharyngeal lesions, moist mucosa Neck: supple Heart: RRR, no murmur, no gallops, no rubs, normal peripheral pulses Respiratory: CTAB, no wheezes, no rales, no ronchi, normal chest expansion, no tachypnea, normal percussion Gastrointestinal: soft, non-tender, non-distended, normal bowel sounds, no palpable masses, no hepatomegaly, no splenomegaly, no bruit Extremities: no cyanosis, no clubbing, no edema Skin: normal turgor, no lesions, no rashes Neurological: cranial nerve grossly intact, normal sensation to touch, no weakness, no focal deficits, no new deficit Musculoskeletal: normal tone, normal strength, no muscle wasting Psychiatric: normal affect, normal behavior, A&O x 3 Hosp A/P - Plan 80 y/o male admitted for hypoxia 2/2 COVID pneumonia comfortable on RA for the past 3 days, but on repeat walking trial did desaturate, qualifying him for home o2. Discharge pending home O2 set up. Will continue ceftriaxone, azithromycin, remdesivir and steroids while awaiting discharge. May transition to oral steroids, abx on d/c home. Awaiting home O2. Case discussed with attending physician, Dr. Cassidy who is in agreement with plan.
[2020-10-01 16:56] VITALS: BP 120/50; TEMP 97.8
== END 2020-10-01 18:03 | disposition home or self-care (01) | DRG 177 ==
LOC: ERS 16:12 → 2SW 18:26
PROVIDERS: ADMIT Internal Medicine; ATTEND Internal Medicine
PROC: 8E0ZXY6 Isolation (ICD-10-PCS; principal; 2020-09-27)
PROC: XW033E5 Introduction of Remdesivir Anti-infective into Peripheral Vein, Percutaneous Approach, New Technology Group 5 (ICD-10-PCS; 2020-09-28)
DX: U07.1 COVID-19 (principal); J12.82 Pneumonia due to coronavirus disease 2019; J96.01 Acute respiratory failure with hypoxia; N17.9 Acute kidney failure, unspecified; K21.9 Gastro-esophageal reflux disease without esophagitis; E78.1 Pure hyperglyceridemia; Z86.73 Personal history of transient ischemic attack (TIA), and cerebral infarction without residual deficits; Z79.899 Other long term (current) drug therapy; R29.6 Repeated falls; I10 Essential (primary) hypertension; E86.0 Dehydration; E78.5 Hyperlipidemia, unspecified
CPT/HCPCS: 36415; 71275; 80053; 80202; 83735; 85025; 86140; 87040; J0456; J0696; J1100; J1644; J3370; J3490; J7050; Q9967; S0028